=== PATIENT | female | born 1965 | race Caucasian/White ===

== ENCOUNTER 2018-04-28 13:55 | Emergency (ER) | payer OTHER ==
[~2018-04-28] VITALS: Ht 167.6 cm; Wt 133.4 kg
[~2018-04-28 13:55] MED LIST: CHOL10002; CLON.1 PO; FURO40 PO; GLIM4 PO; Glucophage1000 MG PO; HYDR1TAB94 PO; LOSA50 PO; NEBI5 PO
[2018-04-28 14:27] LABS: Source, Urine Clean Catch
[2018-04-28 14:31] LABS: Appearance, Urine Clear (Clear); Bilirubin, Urine Neg (Neg); Blood, Urine Neg (Neg); Color, Urine Yellow (P-Yellow); Glucose Qualitative, Urine 3+ (Neg); Ketones, Urine Neg (Neg); Leukocyte Esterase, Urine 1+ (Neg); Nitrite, Urine Neg (Neg); Protein, Urine Neg (Neg); Urobilinogen, Urine NORM (Normal)
[2018-04-28 14:38] LABS: Bacteria Mod /hpf; Red Blood Cells, Urine 0-2 /hpf (0-2); Squamous Epithelial Cells Mod /hpf (Few)
[2018-04-28 14:42] LABS: U Amphetamine Screen Not Detected; U Barbituate Screen Not Detected; U Benzodiazapine Screen Not Detected; U Buprenorphine Screen Not Detected; U Cannabinoids Screen Not Detected; U Cocaine Screen Not Detected; U Methadone Screen Not Detected; U Methamphetamine Screen Not Detected; U Opiates Screen Not Detected; U Oxycodone Screen Not Detected; U Phencyclidine Screen Not Detected; U Propoxyphene Screen Not Detected
[2018-04-28 15:34] LABS: BASOPHILS ABSOLUTE AUTO 0.07 K/mm3 (0.00-0.23); BASOPHILS PERCENT AUTO 0 % (0-2); EOSINOPHILS ABSOLUTE AUTO 0.41 K/mm3 (0.00-0.68); EOSINOPHILS PERCENT AUTO 3 % (0-6); Hemoglobin 15.2 g/dL (11.5-16.0); IMMATURE GRAN ABSOLUTE AUTO 0.11 K/mm3 (0.00-0.10); IMMATURE GRAN PERCENT AUTO 1 % (0-1); LYMPHOCYTES PERCENT AUTO 21 % (21-46); MONOCYTES ABSOLUTE AUTO 1.17 K/mm3 (0.16-1.47); MONOCYTES PERCENT AUTO 7 % (4-13); Mean Corpuscular HGB 30.6 pg (26.0-34.0); Mean Corpuscular Volume 93 fL (80-100); NEUTROPHILS ABSOLUTE AUTO 10.97 K/mm3 (1.96-9.15); NEUTROPHILS PERCENT AUTO 68 % (41-73); Platelet Count 279 K/mm3 (150-400); RDW Coefficient Variation 14.4 % (11.7-14.2); RDW Standard Deviation 48.4 fL (35.1-46.3); Red Blood Cell Count 4.97 M/mm3 (3.80-5.20); White Blood Cell Count 16.13 K/mm3 (4.00-11.30)
[2018-04-28 15:59] LABS: Albumin, Blood 3.2 g/dL (3.4-5.0); Albumin/Globulin Ratio 0.7 (0.8-1.8); Bilirubin, Total 0.3 mg/dL (0.1-1.0); Bun/Creatinine Ratio 18.8 (12.0-20.0); Calcium, Blood 8.9 mg/dL (8.5-10.1); Creatinine, Blood 1.6 mg/dL (0.40-1.00); Globulin, Blood 4.4 g/dL (2.2-4.0); Potassium, Blood 4.7 mmol/L (3.5-5.5); Total Protein, Blood 7.6 g/dL (6.4-8.2)
[2018-04-28 16:18] LABS: Source, Urine Voided
[2018-04-28 16:24] LABS: Appearance, Urine Clear (Clear); Bilirubin, Urine Neg (Neg); Blood, Urine Neg (Neg); Color, Urine Yellow (P-Yellow); Glucose Qualitative, Urine Neg (Neg); Ketones, Urine Neg (Neg); Leukocyte Esterase, Urine 1+ (Neg); Nitrite, Urine Neg (Neg); Protein, Urine Neg (Neg); Urobilinogen, Urine NORM (Normal)
[2018-04-28 16:33] LABS: Red Blood Cells, Urine 0-2 /hpf (0-2); Squamous Epithelial Cells Mod /hpf (Few)
[2018-04-28 16:34] LABS: Bacteria Many /hpf; Hyaline Casts 0-2 /lpf (0-2)
[2018-04-28] MEDS ORDERED: Keflex500 MG PO (17:50)
[2018-04-28] MEDS ORDERED: GLUCOCARD VITA1 EAC2 UD (17:51)
== END 2018-04-28 18:25 | disposition home or self-care (01) ==
LOC: ER 13:55
PROVIDERS: Emergency Medicine; Nurse Practitioner Family
DX: N39.0 Urinary tract infection, site not specified (principal); E11.9 Type 2 diabetes mellitus without complications; I10 Essential (primary) hypertension; F17.200 Nicotine dependence, unspecified, uncomplicated; Z79.899 Other long term (current) drug therapy; Z79.84 Long term (current) use of oral hypoglycemic drugs
CPT/HCPCS: 80053; 81001; 85025; 87086; 99284; J7030

== ENCOUNTER 2018-06-08 07:07 | Day surgery (SDC) | payer OTHER ==
[~2018-06-08] VITALS: Ht 167.6 cm; Wt 131.1 kg
[~2018-06-08 07:07] MED LIST changes: +GLUCOCARD VITA1 EAC2 UD; +Keflex500 MG PO; +NOVOLIN SC
== END 2018-06-08 22:47 | disposition home or self-care (01) ==
LOC: ORSCMMR 07:07 → ORD 08:45 → ORSCMMR 22:47
PROVIDERS: Surgery
PROC: 05H533Z Insertion of Infusion Device into Right Subclavian Vein, Percutaneous Approach (ICD-10-PCS; principal; 2018-06-08 08:45)
PROC: B5161ZA Fluoroscopy of Right Subclavian Vein using Low Osmolar Contrast, Guidance (ICD-10-PCS; principal; 2018-06-08 08:45)
DX: C55 Malignant neoplasm of uterus, part unspecified (principal); E11.9 Type 2 diabetes mellitus without complications; I10 Essential (primary) hypertension; I49.9 Cardiac arrhythmia, unspecified; F17.210 Nicotine dependence, cigarettes, uncomplicated; E66.01 Morbid (severe) obesity due to excess calories; Z68.42 Body mass index [BMI] 45.0-49.9, adult; Z79.899 Other long term (current) drug therapy
CPT/HCPCS: 77001; 82947; C1788; J0690; J1100; J1642; J2250; J2405; J3010; J7120

== ENCOUNTER → 2018-09-13 | Outpatient (CLI) | payer OTHER ==
[~2018-09-13] MED LIST changes: +ACET500 PO; +ASPI81CH PO; +ATOR20 PO; +Benadryl25 MG PO; +DRON2.5 PO; +NOVOLIN N SC; +ONDA4 PO; +PROM25 PO
[2018-09-13 09:48] LABS: Bilirubin, Urine Neg (Neg); Blood, Urine Neg (Neg); Glucose Qualitative, Urine 2+ (Neg); Ketones, Urine Neg (Neg); Leukocyte Esterase, Urine Neg (Neg); Nitrite, Urine Neg (Neg); Protein, Urine Neg (Neg); Urobilinogen, Urine NORM (Normal)
[2018-09-13 09:59] LABS: Appearance, Urine Clear (Clear); Color, Urine Yellow (P-Yellow)
== END | disposition home or self-care (01) ==
LOC: LAB SHORT 09:28 → LAB 09:28
PROVIDERS: Radiology Radiation Oncology
DX: R30.0 Dysuria (principal); R32 Unspecified urinary incontinence
CPT/HCPCS: 81003